=== PATIENT | male | born 1980 | race Caucasian/White ===

== ENCOUNTER 2017-01-23 08:56 | Emergency (ER) | payer BC ==
[~2017-01-23] VITALS: Ht 180.3 cm; Wt 77.6 kg
[2017-01-23 09:00] VITALS: TEMP 98.4; Ht 180.3 cm; Wt 77.6 kg
--- NOTE | 2017-01-23 09:00 | NUR ---
HANDOFF COMMUNICATION Reported patient history to Carmelita FERRER
--- OUTSIDE RECORDS SUMMARY | 2017-01-23 09:01 | XMS REPORT ---
Author Giovanna Montiel [facility] eClinicalWorks Address Unknown Phone Unavailable Care Team Providers Care Auto Bumper Mechanic Name Role Phone Giovanna Whitaker CP Unavailable Allergies No Known Allergies Problems Problem Type Condition Code Onset Dates Condition Status Assessment Routine general medical examination at a health care facility Z00.00 Active Problem Health examination of defined subpopulation V70.5 Active Medications No Known Medications Procedures Procedure Coding System Code Date Drug collection fee $20 CPT-4 COLLP Jun 11, 2016 Results Name Result Date Reference Range Unit Abnormality Flag Collection drug screen, pipeline Summary Purpose eClinicalWorks Submission
--- OUTSIDE RECORDS SUMMARY | 2017-01-23 09:01 | XMS REPORT | Summary of Care ---
Author Author Marcus Morales M.D. Organization Unknown Address [address], [place] [id number] Phone Unavailable Care Team Providers Care Care Aide Name Role Phone Marcus Morales M.D. Unavailable Unavailable Marcus Morales PP Unavailable Unavailable Unavailable Functional Status Functional Status Health Issues* Name Dates Details Functional status health issues are not documented Status: Cognitive Status Health Issues* Name Dates Details Cognitive status health issues are not documented Status: Problems Name Dates Details Allergic rhinitis (477.9, J30.9) Status: Active Insect bite of lower limb (916.4, S80.869A) Status: Active Medications Name Dates Details Minocycline HCl - 100 MG Oral Capsule TAKE 1 CAPSULE TWICE DAILY. Quantity: 28 Marcus Morales M.D.* Started 01-Jan-2015 Active Allergies and Adverse Reactions Name Dates Details No Known Drug Allergies Status: Active Past Medical History Name Dates Details History of acute bronchitis (V12.69, Z87.09) Status: Resolved History of low back pain (V13.59, Z87.39) Status: Resolved Procedures Procedure Dates Details Procedures not documented Immunization Name Dates Details Immunizations not documented Social History Name Dates Details Smoking Status* Former smoker Vital Signs Date Test Result Details 01-Jan-2015 14:34 BP Systolic 110 mm[Hg] Status: BP Diastolic 70 mm[Hg] Status: Heart Rate 74 /min Status: Respiration Rate 16 /min Status: Temperature 98.4 f Status: Weight 175.375 lb Status: O2 SAT 99 % Status: Body Mass Index Calculated 24.46 kg/m2 Status: Body Surface Area Calculated 1.99 m2 Status: 18-Dec-2014 12:34 BP Systolic 116 mm[Hg] Status: BP Diastolic 71 mm[Hg] Status: Heart Rate 87 /min Status: Temperature 98.9 f Status: Weight 172 lb Status: O2 SAT 98 % Status: Body Mass Index Calculated 23.99 kg/m2 Status: Body Surface Area Calculated 1.98 m2 Status: Results Date Description Value Details Results not documented Plan of Care Planned Observations* Name Dates Details Planned Goals not documented Goal Instructions * Instructions not documented Encounters Appointment; Marcus Morales Encounter Diagnosis: Problem not documented On 01-Jan-2015 14:30 Appointment; Mala Wong Encounter Diagnosis: Problem not documented On 18-Dec-2014 12:20
--- OUTSIDE RECORDS SUMMARY | 2017-01-23 09:01 | XMS REPORT | Summary of Care ---
Author Ulises Dennis M.D. Unknown Address Unknown Phone Unavailable Care Team Providers Care Regulated Program Manager Name Role Phone Yari Bueno, L Unavailable Unavailable AndrewMarcus Unavailable Unavailable Unavailable Unavailable Functional Status Name Dates Details Functional status health issues are not documented Status: Name Dates Details Cognitive status health issues are not documented Status: Problems Name Dates Details Insect bite of lower limb (916.4, S80.869A) Status: Active Left flank pain (789.09, R10.9) Status: Active Bronchitis, acute (466.0, J20.9) Status: Active Wheezing (786.07, R06.2) Status: Active Allergic rhinitis (477.9, J30.9) Status: Active Herpes zoster (053.9, B02.9) Status: Active Sprain of right great toe (845.10, S93.501A) Status: Active 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 Quantity: 20 Thode M.DUlises Antonio Start 20-Jan-2017 Active Amoxicillin 500 MG Oral Capsule TAKE 1 CAPSULE 3 TIMES DAILY UNTIL GONE. 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) Status: Active Allergic rhinitis (477.9, J30.9) Status: Active Herpes zoster (053.9, B02.9) Status: Active Lumbar neuritis (724.4, M54.16) Status: Active History of acute bronchitis (V12.69, Z87.09) Status: Resolved History of low back pain (V13.59, Z87.39) Status: Resolved Procedures Procedure Dates Details Procedures not documented Immunization Name Dates Details Immunizations not documented Family History Name Dates Details Family history of malignant neoplasm of breast (V16.3, Z80.3) Comments: Family History Status: Active Name Dates Details Family history of skin cancer (V16.8, Z80.8) Status: Active Name Dates Details Family history of skin cancer (V16.8, Z80.8) Status: Active Social History Name Dates Details - Status: Name Dates Details Current every day smoker Vital Signs Date Test Result Details 20-Jan-2017 17:43 BP Systolic 122 mm[Hg] Status: Comments: Location: LUE; Position: Sitting BP Diastolic 74 mm[Hg] Status: Comments: Location: LUE; Position: Sitting Temperature 97.4 f Status: Comments: Method: Heart Rate 74 /min Status: Comments: Location: ; Height 70 in Status: Weight 164 lb Status: Physical Findings 97 Status: Comments: O2 Saturation Body Mass Index Calculated 23.53 kg/m2 Status: Body Surface Area Calculated 1.92 m2 Status: Results Date Description Value Details Results not documented Plan of Care Name Dates Details Planned Observations Planned Goals not documented Interventions Provided Medication Changes* Amoxicillin 500 MG Oral Capsule - Start * PredniSONE 10 MG Oral Tablet - Start Instructions Name Dates Details Instructions not documented Encounters Appointment; Sarah Moser A.P.R.N. Encounter Diagnosis: Problem not documented On 27-Aug-2016 15:10 Appointment; Ulises Greenberg M.D. Encounter Diagnosis: Problem not documented On 07-Jul-2016 12:20 Appointment; Rajat Godinez D.O. Encounter Diagnosis: Problem not documented On 23-May-2015 15:00 Appointment; Rajat Godinez D.O. Encounter Diagnosis: Problem not documented On 07-May-2015 11:20
--- OUTSIDE RECORDS SUMMARY | 2017-01-23 09:01 | XMS REPORT | Summary of Care ---
Author Author Mala Wong APRN Organization Unknown Address [address] [id number] Phone Unavailable Care Team Providers Care Interactive Developer Name Role Phone Mala Wong APRN Unavailable Unavailable Marcus Morales PP Unavailable Unavailable Unavailable Functional Status Functional Status Health Issues* Name Dates Details Functional status health issues are not documented Status: Cognitive Status Health Issues* Name Dates Details Cognitive status health issues are not documented Status: Problems Name Dates Details Lower back pain (724.2, M54.5) Status: Active Acute bronchitis (466.0, J20.9) Status: Active Allergic rhinitis (477.9, J30.9) Status: Active Medications Name Dates Details Kenalog 40 MG/ML Injection Suspension INJECT 1 ML INTRAMUSCULARLY ONCE. Quantity: 1 Mala Wong APRN* Started 18-Dec-2014 Admin Requested Allergies and Adverse Reactions Name Dates Details No Known Drug Allergies Status: Active Procedures Procedure Dates Details Procedures not documented Immunization Name Dates Details Immunizations not documented Social History Name Dates Details Smoking Status* Former smoker Vital Signs Date Test Result Details No Known Vitals to report Results Date Description Value Details Results not documented Plan of Care Planned Observations* Name Dates Details Planned Goals not documented Goal Instructions * Instructions not documented Encounters Appointment; Mala Wong Encounter Diagnosis: Problem not documented On 18-Dec-2014 12:20
--- OUTSIDE RECORDS SUMMARY | 2017-01-23 09:01 | XMS REPORT | Summary of Care ---
Author Author Rajat Godinez D.O. Organization Unknown Address [address] [place], [place] [id number] Phone Unavailable Care Team Providers Care Drywaller Name Role Phone Deidra Godinez D.O. Unavailable Unavailable Marcus Morales PP Unavailable Unavailable Unavailable Functional Status Functional Status Health Issues* Name Dates Details Functional status health issues are not documented Status: Cognitive Status Health Issues* Name Dates Details Cognitive status health issues are not documented Status: Problems Name Dates Details Allergic rhinitis (477.9, J30.9) Status: Active Insect bite of lower limb (916.4, S80.869A) Status: Active Lumbar neuritis (724.4, M54.16) Status: Active Herpes zoster (053.9, B02.9) Status: Active Left flank pain (789.09, R10.9) Status: Active Medications Name Dates Details Acyclovir 800 MG Oral Tablet 1 po 5 times a day for 7 days Quantity: 35 Rajat Godinez D.O.* Started 07-May-2015 Ended 14-May-2015 ActivePredniSONE 20 MG Oral Tablet TAKE 1 TABLET 3 times daily * Quantity: 15 Refills: 0 Rajat Godinez D.O.* Started 07-May-2015 Ended 12-May-2015 ActiveTraMADol HCl - 50 MG Oral Tablet 1 PO every 4 hours as needed for shingles pain * Quantity: 30 Refills: 0 Rajat Godinez D.O.* Started 07-May-2015 ActiveAdvil 200 MG Oral Tablet TAKE 4 TABLET Every 8 hours PRN back pain * Quantity: 1 Refills: 0 Rajat Godinez D.O.* Started 07-May-2015 Ended 08-May-2015 Active Allergies and Adverse Reactions Name Dates [...] smoker Vital Signs Date Test Result Details 07-May-2015 11:25 BP Systolic 130 mm[Hg] Status: BP Diastolic 74 mm[Hg] Status: Temperature 98.1 f Status: Heart Rate 78 /min Status: Height 71 in Status: Weight 173 lb Status: O2 SAT 98 % Status: Body Mass Index Calculated 24.13 kg/m2 Status: Body Surface Area Calculated 1.98 m2 Status: Results Date Description Value Details Results not documented Plan of Care Planned Observations* Name Dates Details Planned Goals not documented Goal Instructions * Instructions not documented Encounters Appointment; Rajat Godinez Encounter Diagnosis: Problem not documented On 07-May-2015 11:20 Appointment; Marcus Morales Encounter Diagnosis: Problem not documented On 01-Jan-2015 14:30 Appointment; Mala Wong Encounter Diagnosis: Problem not documented On 18-Dec-2014 12:20
--- OUTSIDE RECORDS SUMMARY | 2017-01-23 09:01 | XMS REPORT ---
Author Author Giovanna Whitaker [facility] eClinicalWorks Address Unknown Phone Unavailable Care Team Providers Care Radiology Nurse Name Role Phone Giovanna Whitaker CP Unavailable Allergies No Known Allergies Problems Problem Type Condition Code Onset Dates Condition Status Assessment Health examination of defined subpopulation V70.5 Active Problem Health examination of defined subpopulation V70.5 Active Medications No Known Medications Procedures Procedure Coding System Code Date ASSAY OF BREATH ETHANOL CPT-4 63052 December 08, 2014 Collection of drug screen CPT-4 BERENICE December 08, 2014 Results No Known Results Summary Purpose eClinicalWorks Submission
--- OUTSIDE RECORDS SUMMARY | 2017-01-23 09:01 | XMS REPORT | Summary of Care ---
Author Author Sarah Moser APRN Organization Unknown Address [address] [place], [place] [id number] Phone Unavailable Care Team Providers Care Wafer Cutter Name Role Phone Yari Bueno, L Unavailable Unavailable Sarah Moser APRN Unavailable Unavailable Marcus Morales Unavailable Unavailable Unavailable Unavailable Functional Status Name Dates Details Functional status health issues are not documented Status: Name Dates Details Cognitive status health issues are not documented Status: Problems Name Dates Details Insect bite of lower limb (916.4, S80.869A) Status: Active Lumbar neuritis (724.4, M54.16) Status: Active Left flank pain (789.09, R10.9) Status: Active Bronchitis, acute (466.0, J20.9) Status: Active Wheezing (786.07, R06.2) Status: Active 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 Quantity: 11 Ulises Greenberg M.D. Start 07-Jul-2016 Active Allergies and Adverse Reactions Name Dates Details No Known Drug Allergies (Allergy) Status: Active Past Medical History Name Dates Details Allergic rhinitis (477.9, J30.9) Status: Active Herpes zoster (053.9, B02.9) Status: Active History of acute bronchitis (V12.69, Z87.09) Status: Resolved History of low back pain (V13.59, Z87.39) Status: Resolved Procedures Procedure Dates Details Other (for Billing purposes only) 9030 Ordered: 27-Aug-2016 Immunization Name Dates Details Immunizations not documented Social History Name Dates Details - Status: Name Dates Details Current every day smoker Vital Signs Date Test Result Details 27-Aug-2016 15:24 BP Systolic 122 mm[Hg] Status: Comments: Location: ; Position: BP Diastolic 58 mm[Hg] Status: Comments: Location: ; Position: Temperature 98.6 f Status: Comments: Method: Heart Rate 86 /min Status: Comments: Location: ; Height 71 in Status: Weight 164.6 lb Status: Physical Findings 98 Status: Comments: O2 Saturation Body Mass Index Calculated 22.96 kg/m2 Status: Body Surface Area Calculated 1.94 m2 Status: Results Date Description Value Details 27-Aug-2016 15:27 Urinalysis, Chemistries Only ([facility] only) 4220 Comments: Testing performed by [facility], [address] [place] [address] Testing performed by [facility], [address] [place] [address] pH 6.0 Range: 5.0-7.5 SP GRAVITY 1.030 Range: 1.010-1.030 APPEARANCE Clear Range: Clear COLOR Dk Yellow (Abnormal) Range: Straw-Yellow PROTEIN 15 mg/dL (Abnormal) Range: Negative-Trace GLUCOSE Negative mg/dL Range: Negative KETONES Negative mg/dL Range: Negative BILIRUBIN Negative Range: Negative BLOOD Negative Range: Negative UROBIL 0.2 EU/dL Range: 0.2-1.0 NITRITE Negative Range: Negative LEUKOCYTES Negative Range: Negative Plan of Care Name Dates Details Planned Observations Planned Goals not documented Interventions Provided Labs/Procedures/Imaging* Other (for Billing purposes only) 9030; To be Done: 27 Aug 2016 * Urinalysis, Chemistries Only ([facility] only) 8017; Done: [id number] 03: 13PM Instructions Name Dates Details Instructions not documented Encounters Appointment; Ulises Greenberg M.D. Encounter Diagnosis: Problem not documented On 07-Jul-2016 12:20 Appointment; Rajat Godinez D.O. Encounter Diagnosis: Problem not documented On 23-May-2015 15:00 Appointment; Rajat Godinez D.O. Encounter Diagnosis: Problem not documented On 07-May-2015 11:20 Appointment; Marcus Morales M.D. Encounter Diagnosis: Problem not documented On 01-Jan-2015 14:30 Appointment; Mala Wong A.P.R.N. Encounter Diagnosis: Problem not documented On 18-Dec-2014 12:20
--- OUTSIDE RECORDS SUMMARY | 2017-01-23 09:01 | XMS REPORT | Summary of Care ---
Author Author Ulises Greenberg M.D. Unknown Address Unknown Phone Unavailable Care Team Providers Care Senior Web Developer Name Role Phone Yari Bueno, L Unavailable Unavailable Denisejulio cesarMarcus Unavailable Unavailable Unavailable Unavailable Functional Status Name [...] right great toe (845.10, S93.501A) Status: Active Medications Name Dates Details LORazepam 1 MG Oral Tablet one tab po tid for 2 days then one half tab po tid for 2 days then one half tab po bid for one day then one half tab po q day for one day. Quantity: 11 Thode Ulises Bueno Start 07-Jul-2016 Active Sulfamethoxazole-Trimethoprim 800-160 MG Oral Tablet TAKE 1 TABLET TWICE DAILY. * Quantity: 14 Refills: 0 Thode Ulises Bueno Start 07-Jul-2016 End 14-Jul-2016 Active Allergies and Adverse Reactions Name Dates [...] smoker Vital Signs Date Test Result Details 07-Jul-2016 12:36 BP Systolic 118 mm[Hg] Status: Comments: Location: ; Position: BP Diastolic 76 mm[Hg] Status: Comments: Location: ; Position: Temperature 98.8 f Status: Comments: Method: Heart Rate 72 /min Status: Comments: Location: ; Physical Findings 99 Status: Comments: O2 Saturation Results Date Description Value Details Results not documented Plan of Care Name Dates Details Planned Observations Planned Goals not documented Interventions Provided Medication Changes* LORazepam 1 MG Oral Tablet - Start * Sulfamethoxazole-Trimethoprim 800-160 MG Oral Tablet - Start Instructions Name Dates Details Instructions not documented Encounters Appointment; Rajat Godinez D.O. Encounter Diagnosis: Problem not documented On 23-May-2015 15:00 Appointment; Rajat Godinez D.O. Encounter Diagnosis: Problem not documented On 07-May-2015 11:20 Appointment; Marcus Morales M.D. Encounter Diagnosis: Problem not documented On 01-Jan-2015 14:30 Appointment; Mala Wong A.P.R.N. Encounter Diagnosis: Problem not documented On 18-Dec-2014 12:20
--- OUTSIDE RECORDS SUMMARY | 2017-01-23 09:01 | XMS REPORT | Summary of Care ---
Author Author Rajat Godinez D.O. Organization Unknown Address [address] [place], [place] [id number] Phone Unavailable Care Team Providers Care Evaluation Specialist Name Role Phone Deidra Godinez D.O. Unavailable [...] Left flank pain (789.09, R10.9) Status: Active Sinusitis, acute (461.9, J01.90) Status: Active Bronchitis, acute (466.0, J20.9) Status: Active Wheezing (786.07, R06.2) Status: Active Medications Name Dates Details Azithromycin 250 MG Oral Tablet 2 PO today, then 1 PO daily thereafter Quantity: 6 Rajat Godinez D.O.* Started 23-May-2015 ActivePredniSONE 20 MG Oral Tablet TAKE 1 TABLET Every 8 hours * Quantity: 21 Refills: 0 Rajat Godinez D.O.* Started 23-May-2015 Ended 30-May-2015 Active Allergies and Adverse Reactions Name Dates Details No Known Drug Allergies Status: Active Past Medical History Name Dates Details History of acute bronchitis (V12.69, Z87.09) Status: Resolved History of low back pain (V13.59, Z87.39) Status: Resolved Procedures Procedure Dates Details Procedures not documented Immunization Name Dates Details Immunizations not documented Social History Name Dates Details Smoking Status* Current every day smoker Vital Signs Date Test Result Details 23-May-2015 15:28 BP Systolic 133 mm[Hg] Status: BP Diastolic 65 mm[Hg] Status: Temperature 98.8 f Status: Heart Rate 101 /min Status: Weight 176 lb Status: O2 SAT 96 % Status: Body Mass Index Calculated 24.55 kg/m2 Status: Body Surface Area Calculated 2 m2 Status: 07-May-2015 11:25 BP Systolic 130 mm[Hg] Status: [...] Godinez Encounter Diagnosis: Problem not documented On 23-May-2015 15:00 Appointment; Rajat Godinez Encounter Diagnosis: Problem not documented On 07-May-2015 11:20 Appointment; Marcus Morales Encounter Diagnosis: Problem not documented On 01-Jan-2015 14:30 Appointment; Mala Wong Encounter Diagnosis: Problem not documented On 18-Dec-2014 12:20
--- NOTE | 2017-01-23 09:10 | NUR ---
PROVIDER DR ZHAO AT BEDSIDE
[2017-01-23 09:37] LABS: BLOOD, URINE NEGATIVE (NEGATIVE); COLOR,URINE YELLOW (YELLOW); LEUKOCYTE ESTERASE ,URINE NEGATIVE (NEGATIVE); NITRITE,URINE NEGATIVE (NEGATIVE); UROBILINOGEN,URINE 0.2 EU/DL (NORMAL)
[2017-01-23 09:38] LABS: BASOPHILS % (AUTO) 0.2 % (0-2); HCT - HEMATOCRIT 41.2 % (41-53); HGB - HEMOGLOBIN 14.6 GM/DL (13.5-17.5); IMMATURE GRANULOCYTE # (AUTO) 0.01 T/MM3 (0.00-0.03); IMMATURE GRANULOCYTE % (AUTO) 0.2 % (0.0-0.5); LYMPHOCYTES # (AUTO) 1.2 T/MM3 (1-4.8); LYMPHOCYTES % (AUTO) 24.9 % (23-45); MEAN CORPUSCULAR HGB 32.1 UUG (26-34); MEAN CORPUSCULAR HGB CONC(MCHC 35.4 GM/DL (31-37); MEAN CORPUSCULAR VOLUME 90.5 UM3 (80-100); MEAN PLATELET VOLUME 10.2 UM3 (9.4-12.4); MONOCYTES # (AUTO) 0.5 T/MM3 (0-0.8); MONOCYTES % (AUTO) 10.5 % (0-9.0); NEUTROPHILS #(AUTO)-ABSOLUTE 3.2 T/MM3 (1.8-7.7); NEUTROPHILS % (AUTO) 64.2 % (33-66); RED BLOOD COUNT 4.55 M/MM3 (4.50-5.90)
--- NOTE | 2017-01-23 09:40 | NUR ---
XRAY RADIOLOGY AT BEDSIDE FOR CXR. PATIENT REFUSES. DR ZHAO NOTIFIED.
[2017-01-23 09:48] LABS: ALBUMIN 4.7 G/DL (3.5-5.0); ALBUMIN/GLOBULIN RATIO 1.7 RATIO (1.1-2.2); ALKALINE PHOSPHATASE 33 U/L (38-126); ALT (SGPT) 42 U/L (21-72); ANION GAP 16 MEQ/L (5-15); AST (SGOT) 23 U/L (17-59); BUN/CREATININE RATIO 19 RATIO (6-26); CALCIUM 9.2 MG/DL (8.4-10.2); CHLORIDE 98 MEQ/L (98-107); CO2 - CARBON DIOXIDE 29 MEQ/L (22-30); CREATININE 0.8 MG/DL (0.8-1.5); GLOMERULAR FILTRATION RATE 111; GLUCOSE 138 MG/DL (75-110); POTASSIUM 3.3 MEQ/L (3.6-5); SODIUM 143 MEQ/L (134-144); TOTAL PROTEIN 7.5 G/DL (6.3-8.2)
[2017-01-23 09:49] LABS: AMPHETAMINE SCREEN,URINE NEGATIVE; BARBITURATE SCREEN,URINE NEGATIVE; BENZODIAZEPINES SCREEN,URINE NEGATIVE; CANNABINOID SCREEN,URINE NEGATIVE; COCAINE SCREEN,URINE NEGATIVE; METHADONE SCREEN, URINE NEGATIVE; METHAMPHETAMINE SCREEN, URINE NEGATIVE; OPIATE SCREEN,URINE POSITIVE; PHENCYCLIDINE SCREEN,URINE NEGATIVE; TRICYCLIC ANTIDEPRESSANT,URINE NEGATIVE
--- NOTE | 2017-01-23 09:55 | NUR ---
UPDATE PATIENT LYING IN BED, AT BEDSIDE. PATIENT REPORTS NO CHANGES IN CONDITION AT THIS TIME. DENIES NEEDS.
--- NOTE | 2017-01-23 10:04 | ERPDOC ---
Departure Disposition Decision Date: January 23, 2017 Disposition Decision Time: 10:51 Disposition: 01 DISCHARGED HOME, SELF-CARE Impression Impression Impression: Primary Impression: Light-headedness Severity: Mild Condition: Improved Seen By: Physician only Referrals: OTHER (Family) [facility] 2 Days Patient Instructions: Near Syncope (ED) Problems/Meds/Labs Reviewed?: Yes Medications reviewed and manag: Yes Follow up care ordered?: Yes Mental Status: Alert, Oriented HPI - General Medical General Chief Complaint: Dizzy Stated Complaint: DIZZY LIGHTHEADED Time Seen by Provider: 09:06 Source: patient Exam Limitations: no limitations HPI - General Medical Initial Comments 36-year-old male presents to emergency department with a chief complaint of feeling lightheaded. Patient noted onset of symptoms yesterday evening. Patient states that he did drink alcohol yesterday evening along with using "more than he should've of his prescription codeine cough syrup" for recreational purposes. Patient denies homicidal/suicidal ideation or plan. Denies self injury or self-harm. Patient denies any current pain or discomfort. Patient states the symptoms have improved since their onset one day ago. There are no other complaints or associated symptoms. He does not note any exacerbating or remitting factors. Patient has a history of similar symptoms in the past. No other complaints or associated symptoms. Occurred At: home Onset: Gradual Allergies: Coded Allergies: No Known Allergies (Unverified , 01/23/17) Past History Past Medical History Pt denies signifigant [facility] Surgical History Denies Surgeries Family History Family History: Negative Social History Smoking Status: Never smoker Substance Use Type: does not use Alcohol Intake: occasionally Review of Systems Constitutional Constitutional: DENIES: chills, fever Eyes General: DENIES: erythema, exudate Lids/Accessories: DENIES: erythema, swelling Vision: DENIES: acuity, blurring ENMT Ears: DENIES: drainage, erythema Hearing: DENIES: hearing loss Balance: DENIES: ataxia, falling to one side Sinuses: DENIES: congestion, pain Nose: DENIES: nosebleeds, pain Mouth/Throat: DENIES: painful swallowing, sore throat Teeth: DENIES: pain Jaw: DENIES: pain Cardiovascular Cardiac: DENIES: chest pain, dyspnea on exertion Rhythm/Rate: DENIES: irregular beat, palpitations Vascular: DENIES: pedal edema, unilateral swelling Pulmonary Respiratory: DENIES: cough, dyspnea, pleuritic chest pain, sputum GI Upper Abdomen: DENIES: nausea, pain, vomiting Lower Abdomen: DENIES: diarrhea, pain General: DENIES: dysuria, frequency, urgency Musculoskeletal General: DENIES: joint pain, tenderness Integumentary Skin: DENIES: itching, rash Neurological General: DENIES: change in strength, headache, numbness, seizures, syncope, weakness Psychiatric Psychiatric: DENIES: emotional instability, suicidal ideation/attempt Endocrine Endocrine: DENIES: polydipsia, polyphagia Hematologic/Lymphatic Hematologic/Lymphatic: DENIES: frequent nosebleeds, lymphadenopathy Allergic/Immunological Allergic/Immunoligical: DENIES: allergic reactions, hives Physical Exam General General Nourishment: well nourished, well developed, appears stated age, no acute distress, adult General Body Habitus: well groomed Vitals and Pain First Documented Vital Signs Date Time Temp Pulse Resp B/P Pulse Ox O2 Delivery O2 Flow Rate FiO2 01/23/17 09:00 98.4 85 22 141/79 98 Room Air Weight: Kilograms: 77.600 Height (feet): 5 Height (inches): 11.00 Triage Pain Scale: RN VS reviewed by Provider: Yes Normal Exams: Head: Normocephalic w/o trauma Eyes: Pupils are PERRLA w/ EOMI, No scleral icterus, irritation, or foreign bodies noted ENMT: No facial trauma, nasal exudates, pharyngeal erythema, or exudates are noted Dental: No fractured, loose, or missing teeth noted Neck: Full range of motion, without adenopathy, JVD, bruits or thyromegaly Chest/Resp: Clear all [place], with good airflow, and symmetry bilaterally CV: Regular rate and rhythm, without murmur or gallop, Pulses 2+ all extremities, capillary refill, <2 seconds all ext., no pedal edema noted Abdomen: Bowel sounds positive, soft, non-tender, non-distended, no hepatosplenomegaly, masses or bruits noted Lymphatic: No lymphadenopathy, or lymphedema noted Musculoskeletal: No tenderness, or deformity noted, good range of motion, all extremities Integumentary: No rashes, hives, or bruising noted, hair and nails, without abnormality Neurologic: Patient is alert, and oriented, cranial nerves, motor/sensory/ cerebellar, exams w/o gross deficits, to observation Psychiatric: Patient exhibits, appropriate attention, emotion and affect Differential Diagnoses Considering: Medication Effect, Metabolic, Other (Near Syncope / Syncope) Progress Results/Orders Orders Procedure Category Date Status Time Cbc W/Auto LAB 01/23/17 Complete Diff-Reflex Manual Cmp - Comprehensive LAB 01/23/17 Complete Metabolic Troponin I W LAB 01/23/17 Complete Hemolysis Index EKG EKG 01/23/17 Taken Iv Lock (Ed Only) EDM 01/23/17 Transmitted 09:06 Ua, Dip Wreflex LAB 01/23/17 Complete [employer] 09:15 Drug Screen LAB 01/23/17 Complete Urine-Test At [facility] [place] 09:15 Ethanol LAB 01/23/17 Complete Acetaminophen LAB 01/23/17 Complete Salicylate LAB 01/23/17 Complete Potassium Chloride PHA 01/23/17 Complete (Kdur) 11:00 Lab Results Laboratory Tests Test 01/23/17 09:20 01/23/17 09:28 White Blood Count 5.0T/MM3 Red Blood Count 4.55M/MM3 Hemoglobin 14.6GM/DL Hematocrit 41.2% Mean Corpuscular Volume 90.5UM3 Mean Corpuscular Hemoglobin 32.1UUG Mean Corpuscular Hemoglobin Concent 35.4GM/DL RDW Standard Deviation 38.8FL Platelet Count 163T/MM3 Mean Platelet Volume 10.2UM3 Immature Granulocyte % (Auto) 0.2% Neutrophils (%) (Auto) 64.2% Lymphocytes (%) (Auto) 24.9% Monocytes (%) (Auto) 10.5% Eosinophils (%) (Auto) 0.0% Basophils (%) (Auto) 0.2% Absolute Immature Granulocyte (auto 0.01T/MM3 Absolute Neutrophils (auto) 3.2T/MM3 Absolute Lymphocytes (auto) 1.2T/MM3 Absolute Monocytes (auto) 0.5T/MM3 Absolute Eosinophils (auto) 0.0T/MM3 Absolute Basophils (auto) 0.0T/MM3 Turbidity < 20 Sodium Level 143MEQ/L Potassium Level 3.3MEQ/L Chloride Level 98MEQ/L Carbon Dioxide Level 29MEQ/L Anion Gap 16MEQ/L Blood Urea Nitrogen 15.0MG/DL Creatinine 0.8MG/DL Glomerular Filtration Rate Calc 111 BUN/Creatinine Ratio 19RATIO Glucose Level 138MG/DL Calculated Osmolality 278MOSM/KG Calcium Level 9.2MG/DL Total Bilirubin 0.70MG/DL Icterus Index < 2 Aspartate Amino Transf (AST/SGOT) 23U/L Alanine Aminotransferase (ALT/SGPT) 42U/L Alkaline Phosphatase 33U/L Troponin I < 0.012ng/ml Total Protein 7.5G/DL Albumin 4.7G/DL Globulin 2.8G/DL Albumin/Globulin Ratio 1.7RATIO Chemistry Specimen Hemolysis < 15 Salicylates Level < 1.0MG/DL Acetaminophen Level < 10UG/ML Alcohol, Quantitative <10MG/DL Urine Collection Type Cleancatch-midstream Urine Color Yellow Urine Turbidity Clear Urine pH 5.5 Urine Specific [place] 1.025 Urine Protein Negative Urine Glucose (UA) Negative Urine Ketones Trace Urine Blood Negative Urine Nitrite Negative Urine Bilirubin Negative Urine Urobilinogen 0.2EU/DL Urine Leukocyte Esterase Negative Urinalysis Comment Microscopic not ind. Urine Opiates Screen PositiveNG/ML Urine Oxycodone Screen NegativeNG/ML Urine Methadone Screen NegativeNG/ML Urine Propoxyphene Screen NegativeNG/ML Urine Barbiturates Screen NegativeNG/ML Urine Tricyclic Antidepressants NegativeNG/ML Urine Phencyclidine Screen NegativeNG/ML Urine Amphetamines Screen NegativeNG/ML Urine Methamphetamines Screen NegativeNG/ML Urine Benzodiazepines Screen NegativeNG/ML Urine Cocaine Screen NegativeNG/ML Urine Cannabinoids Screen NegativeNG/ML Urine Drug Screen Confirmation Sent out Urine Drug Screen Information Pending Medications Current ED Medications Potassium Chloride (Kdur) 40 meq O ONCE PO Last administered on 01/23/17t 11: 01; Start 01/23/17 at 11:00; Stop 01/23/17 at 11:01; Status DC Progress Progress Patient declined CT head. Patient declined chest x-ray. Patient refused IV start. Patient refused IV hydration. Labs were discussed in detail with the patient and questions are answered. Patient is given appropriate potassium supplementation in the emergency Department. Patient is discharged home in improved condition. He is to follow up as instructed. Patient is to return to the emergency department if his condition worsens or changes in any manner. Patient continues to deny suicidal/homicidal ideation or plan. He denies self injury or self-harm. Patient maintains that his use of the cough syrup and alcohol last night were purely recreational with no other intent. Patient is to follow up as instructed. EKG EKG : Rate: 60-100 Rhythm: sinus [place]: normal QRS: normal Intervals: normal ST/T: normal Interpreted by: signing physician EKG Comments Early repolarization. No STEMI. No chest pain. No reciprocal changes. KAMLESH ZHAO DO January 23, 2017 10:04
[2017-01-23 10:06] LABS: ACETAMINOPHEN < 10 UG/ML (10-30); ETHANOL <10 MG/DL (<10); SALICYLATE < 1.0 MG/DL (2-20)
[2017-01-23] MEDS ORDERED: NO ROUTINE MEDS (10:23)
[2017-01-23] MEDS ORDERED: HYDR473S54 PO (10:28)
[2017-01-23] MEDS ORDERED: AMOX500C2 PO (10:28)
[2017-01-23] MEDS ORDERED: PRED10TA PO (10:28)
--- NOTE | 2017-01-23 10:45 | NUR ---
PROVIDER DR ZHAO AT BEDSIDE TO DISCUSS POC
[2017-01-23] MEDS ORDERED: POTASSIUM CHLORIDE 20 MEQ TABLET PO ONE (11:00)
[2017-01-23 11:03] VITALS: BP 140/70; PULSE 73; RESP 17; O2SAT 97
== END 2017-01-23 11:03 | disposition home or self-care (01) ==
LOC: ED 08:56
DX: R42 Dizziness and giddiness (principal)
CPT/HCPCS: 36415; 80053; 80306; 80307; 81003; 84484; 85025; 93005